=== PATIENT | male | born 1955 | race Caucasian/White ===

== ENCOUNTER 2018-04-03 16:12 | Emergency (ER) | payer OTHER ==
--- NOTE | 2018-04-03 16:48 | ER ---
Nurse's Notes [facility] Name: Gonzalo Aldridge Age: 62 yrs Sex: Male : 1955 Arrival Date: 04/03/2018 Time: 16:14 Bed 10 Private MD: Diagnosis: Low back pain Presentation: 04/03 16:27 Presenting complaint: Patient states: "I have chronic back and neck pain and I have hb been out of my Tramadol for 2 days but I can't get in to see Dr. Singh until ." Reports pain 05/07. Transition of care: patient was not received from another setting of care. Onset of symptoms was April 03, 2018. Risk Assessment: Do you want to hurt yourself or someone else? Patient reports no desire to harm self or others. Care prior to arrival: None. 16:27 Method Of Arrival: Ambulatory hb 16:27 Acuity: SHARONDA 4 hb 16:30 Initial Sepsis Screen: Does the patient meet any 2 criteria? No. Patient's initial hb sepsis screen is negative. Does the patient have a suspected source of infection? No. Patient's initial sepsis screen is negative. Triage Assessment: 16:28 General: Appears in no apparent distress. Behavior is calm, cooperative. Pain: Pain hb currently is 9 out of 10 on a pain scale. Neuro: Level of Consciousness is awake, alert, obeys commands, Oriented to person, place, time, situation. Cardiovascular: Capillary refill < 3 seconds Patient's skin is warm and dry. Respiratory: Airway is patent Trachea midline Respiratory effort is even, unlabored, Respiratory pattern is regular, symmetrical. Musculoskeletal: Capillary refill < 3 seconds, Reports pain in neck and back. Historical: - Allergies: 16:28 No Known Allergies; hb - Immunization history:: Adult Immunizations up to date. - Social history:: Smoking status: Patient/guardian denies using tobacco. - Ebola Screening: : No symptoms or risks identified at this time. Screenin:30 Abuse screen: Denies threats or abuse. Denies injuries from another. Nutritional hb screening: No deficits noted. Tuberculosis screening: No symptoms or risk factors identified. Fall Risk None identified. Assessment: 16:30 General: see triage assessment. hb Vital Signs: 16:28 BP 152 / 103; Pulse 80; Resp 18; Temp 98; Pulse Ox 100% on R/A; Pain 9/10; hb ED Course: 16:14 Patient arrived in ED. mr 16:28 Triage completed. hb 16:28 Arm band placed on left wrist. hb 16:30 Patient has correct armband on for positive identification. Call light in reach. hb 16:34 Wilmer Albright PA is PHCP. [facility] 16:34 Jose Newton MD is Attending Physician. [facility] 16:52 Manda Tomlinson, RN is Primary Nurse. hb 16:54 No provider procedures requiring assistance completed. Patient did not have IV access hb during this emergency room visit. Administered Medications: No medications were administered Outcome: 16:47 Discharge ordered by MD. [facility] 16:54 Discharged to home ambulatory. hb 16:54 Condition: stable 16:54 Discharge instructions given to patient, Instructed on discharge instructions, follow up and referral plans. medication usage, Demonstrated understanding of instructions, follow-up care, medications, Prescriptions given X 1. 16:55 Patient left the ED. hb Signatures: Wilmer Albright PA PA jmm Rivera, Maria Manda Tomlinson, RN RN hb
--- NOTE | 2018-04-03 16:48 | EDPHYS ---
Physician Documentation [facility] Name: Gonzalo Aldridge Age: 62 yrs Sex: Male : 1955 Arrival Date: 04/03/2018 Time: 16:14 Bed 10 Private MD: ED Physician Jose Newton HPI: 04/03 16:46 This 62 yrs old Male presents to ER via Ambulatory with complaints of Back jmm Pain. 16:46 The patient presents with pain that is chronic, with no known mechanism of injury. The jmm symptoms are located in the low back. Associated signs and symptoms: The patient has no apparent associated signs or symptoms. This is a 62 year old male with a history of chronic back and neck pain that presents to the ED with complaints of neck and back pain. Patient states that he ran out of tramadol 2 days ago and is scheduled to see his spray i painter in 2 days. Patient states symptoms are chronic. . Historical: - Allergies: 16:28 No Known Allergies; hb - Immunization history:: Adult Immunizations up to date. - Social history:: Smoking status: Patient/guardian denies using tobacco. - Ebola Screening: : No symptoms or risks identified at this time. ROS: 16:46 Constitutional: Negative for fever, chills, and weight loss, Cardiovascular: Negative jmm for chest pain, palpitations, and edema, Respiratory: Negative for shortness of breath, cough, wheezing, and pleuritic chest pain, Abdomen/GI: Negative for abdominal pain, nausea, vomiting, diarrhea, and constipation. 16:46 : Negative for injury, bleeding, discharge, and swelling, MS/Extremity: Negative for injury and deformity, Skin: Negative for injury, rash, and discoloration, Neuro: Negative for headache, weakness, numbness, tingling, and seizure. 16:46 Neck: Positive for pain with movement, pain at rest. 16:46 Back: Positive for pain at rest. 16:46 All other systems are negative. Exam: 16:46 Constitutional: This is a well developed, well nourished patient who is awake, alert, jmm and in no acute distress. Head/Face: atraumatic. Chest/axilla: Normal chest wall appearance and motion. Cardiovascular: Regular rate and rhythm. No edema appreciated Respiratory: Normal respirations, no respiratory distress appreciated Skin: General appearance color normal MS/ Extremity: Moves all extremities, no obvious deformities appreciated, no edema noted to the lower extremities Neuro: Awake and alert, normal gait 16:46 Neuro: Gait: is steady. Vital Signs: 16:28 BP 152 / 103; Pulse 80; Resp 18; Temp 98; Pulse Ox 100% on R/A; Pain 9/10; hb MDM: 16:46 Patient medically screened. [facility] 16:47 Data reviewed: vital signs, nurses notes. Counseling: I had a detailed discussion with wale the patient and/or guardian regarding: the historical points, exam findings, and any diagnostic results supporting the discharge/admit diagnosis, the need for outpatient follow up, to return to the emergency department if symptoms worsen or persist or if there are any questions or concerns that arise at home. Administered Medications: No medications were administered Disposition: 19:07 Co-signature as Attending Physician, Jose Newton MD. rn Disposition: 04/03/18 16:47 Discharged to Home. Impression: Low back pain. - Condition is Stable. - Discharge Instructions: Back Pain, Adult. - Prescriptions for Tramadol 50 mg Oral Tablet - take 1 tablet by ORAL route every 8 hours as needed; 6 tablet. - Medication Reconciliation Form, Thank You Letter, Antibiotic Education, Prescription Opioid Use form. - Follow up: Private Physician; When: 2 - 3 days; Reason: Continuance of care. Signatures: Wilmer Albright PA PA [facility] Jose Newton MD MD rn Baxter, Heather, RN RN hb Corrections: (The following items were deleted from the chart) 16:55 16:47 04/03/2018 16:47 Discharged to Home. Impression: Low back pain. Condition is hb Stable. Forms are Medication Reconciliation Form, Thank You Letter, Antibiotic Education, Prescription Opioid Use. Follow up: Private Physician; When: 2 - 3 days; Reason: Continuance of care. [facility]
== END 2018-04-03 16:55 | disposition home or self-care (01) ==
LOC: ER 16:12
DX: M54.5 Low back pain (principal)
CPT/HCPCS: 99282

== ENCOUNTER 2021-11-26 14:20 | Emergency (ER) | payer OTHER ==
--- OUTSIDE RECORDS SUMMARY | 2021-11-26 15:55 | XMS REPORT | Continuity of Care Document ---
:1955 Author Organization [facility] t Address [address] [place] [address] Care Team Providers Name Role Phone Ayan Desouza Primary Care Physician Karlene MCCARTHY Attending Clinician Unavailable BEST DEL TORO Attending Clinician Unavailable Nurse, Pob Immunization Attending Clinician Unavailable Best Del Toro DO Attending Clinician Karl TIMMONS Attending Clinician Unavailable Karlene MCCARTHY Admitting Clinician Unavailable Payers Payer Name Policy Type Policy Number Effective Date Expiration Date S mick [facility] [id number] 2018 00:00:00 PLUS Problems Condition Condition Condition Status Onset Resolution Last Treating Co mments Source Name Details Category Date Date Treatment Clinician Date Morbid Morbid Disease Active Univers obesity obesity 4-14 [place]y of [place] mass index 00 [place] dical of of [place] 40.0-49.9 40.0-49.9 Allergies, Adverse Reactions, Alerts Allergy Allergy Status Severity Reaction(s) Onset Inactive Treating Comm ents Source Name Type Date Date Clinician NO KNOWN Drug Active Univers ALLERGIE Class ity of S [facility] Social History Social Habit Start Date Stop Date Quantity Comments Source Tobacco use and 2020-12-22 2020-12-22 Never used Universit y of exposure 00:00:00 00:00:00 [facility] Tobacco Comment 2020-12-22 2020-12-22 quit 2010: 1ppd Univ ersity of 00:00:00 00:00:00 X 15 yrs [facility] Sex Assigned At [birth year] Universit y of 00:00:00 00:00:00 [facility] Smoking Status Start Date Stop Date Source Former smoker 2020-12-22 00:00:00 2020-12-22 00:00:00 [facility] Medications Ordered Filled Start Stop Current Ordering Indication Dosage Frequency Signature Comments Components Source Medication Medication Date Date Medication? Clinician (SIG) Name Name gabapentin Yes TAKE 3 Unive rs 300 mg 3-25 CAPSULES ity of capsule 00:00: BY MOUTH 00 EVERY Medical NIGHT AT Branch BEDTIME traMADoL 50 Yes 50mg Take 50 mg Univers mg tablet 3-25 by mouth 3 ity of 00:00: (three) [place] 00 times Medical daily. Branch doxazosin 4 Yes 4mg Take 4 mg U nivers mg tablet 2-22 by mouth ity of 00:00: every [place] morning. Medical Branch atorvastati Yes 40mg Take 40 mg Univers n 40 mg 1-22 by mouth ity of tablet 00:00: every [place] morning. Medical Branch lisinopriL Yes 20mg Take 20 mg U nivers 20 mg 1-22 by mouth ity of tablet 00:00: every [place] morning. [facility] Immunizations Ordered Filled Immunization Date Status Comments Sour e Immunization Name Name SARS-COV-2 COVID-19 2021-08-02 Completed Unive rsity of MODERNA BOOSTER 00:00:00 [facility] VACCINE Branch SARS-COV-2 COVID-19 2020-12-24 Completed Unive rsity of MODERNA VACCINE 00:00:00 [facility] SARS-COV-2 COVID-19 2020-11-25 Completed Unive rsity of MODERNA VACCINE 00:00:00 [facility] Procedures Procedure Date / Time Performed Performing Clinician Luisa e SARS-COV-2 COVID-19 2021-08-02 16:48:54 Doctor Unassigned, No Un iversity of [place] VACCINE Name [facility] BOOSTER,0.25ML,IM (MODERNA) Encounters Start End Encounter Admission Attending Care Care Encounter Source Date/Time Date/Time Type Type Clinicians Facility Department ID 2021-06-27 Outpatient Jensen MCCARTHY [facility] OPH [id number] Univers 10:42:08 NOEL brooks [facility] 2021-08-02 2021-08-02 Outpatient [facility] [id number] Univers 11:00:00 11:00:00 [id number] [facility] 2021-08-02 2021-08-02 Outpatient R RASHARD [facility] [id number] Univers 11:00:00 11:00:00 OZIEL bebeto [facility] 2021-08-02 2021-08-02 Imm/Inj Nurse, Adc Pob Immunization [facility] [id number] Univers 10:22:08 10:22:19 Visit RashardOziel P[place] [id number] [facility] [id number] [place] PROFESS[place] [id number] N[place] dical [address] 2020-12-24 2020-12-24 Outpatient Jensen DEL TORO [facility] [id number] Univers 14:10:00 [facility]:10:[facility] 2020-12-23 2020-12-23 Outpatient Jensen TIMMONS [facility] [id number] Univers 12:50:00 12:50:00 ANUM [facility] 2020-12-22 2020-12-22 Outpatient R [facility] [id number] Univers 11:30:00 11:30:00 [id number] [facility] 2020-12-22 2020-12-22 Outpatient Jensen MCCARTHY [facility] [id number] Univers 11:30:00 11:30:00 NOEL [facility] 2020-12-08 2020-12-08 Outpatient Jensen MCCARTHY [facility] [id number] Univers 09:45:00 09:45:00 NOEL [facility] 2020-11-30 2020-11-30 [facility] [id number] Univers 11:00:00 11:00:00 NOEL [facility] Results This patient has no known results.
--- NOTE | 2021-11-26 16:46 | EDPHYS ---
Physician Documentation [facility] Name: Gonzalo Aldridge Age: 66 yrs Sex: Male : 1955 Arrival Date: 11/26/2021 Time: 14:25 Bed 10 Private MD: Chaparrita Desouza C ED Physician Jose Newton HPI: 11/26 16:05 This 66 yrs old Male presents to ER via Wheelchair with complaints of Injury to Left cp Lower Leg and Left Foot. 16:05 The patient presents with an injury. The complaints affect the left rascon and dorsum of cp left foot. 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 Patient reports mild pain to left hip with history of left replacement but declines xrays at this time. Requests xrays of left foot and left lower leg. Historical: - Allergies: 15:01 No Known Allergies; ab2 - PMHx: 15:01 None; ab2 - PSHx: 15:01 Hip; ab2 - Immunization history:: Adult Immunizations up to date. - Social history:: Smoking status: Patient denies any tobacco usage or history of. ROS: 16:15 Constitutional: Negative for body aches, chills, fever, poor PO intake. cp 16:15 Respiratory: Negative for cough, shortness of breath, wheezing. 16:15 Abdomen/GI: Negative for abdominal pain, nausea, vomiting, and diarrhea. 16:15 MS/extremity: Positive for pain, swelling, tenderness, of the left foot and left rascon. 16:15 Skin: Negative for rash. 16:15 Neuro: Negative for altered mental status, headache, weakness. cp 16:15 All other systems are negative. cp Exam: 16:20 Constitutional: The patient appears in no acute distress, alert, awake, non-toxic, well cp developed, well nourished. 16:20 Head/Face: Normocephalic, atraumatic. cp 16:20 Neck: ROM/movement: is normal, is supple, without pain, no range of motions limitations. 16:20 Chest/axilla: Inspection: normal. 16:20 Cardiovascular: Rate: normal. 16:20 Respiratory: the patient does not display signs of respiratory distress, Respirations: normal. 16:20 Back: pain, is absent, ROM is normal. 16:20 Musculoskeletal/extremity: Extremities: grossly normal except: noted in the left rascon: ecchymosis, swelling, tenderness, noted in the left foot: tenderness, no evidence of decreased ROM, deformity, Perfusion: the extremity is normally perfused throughout, Sensation intact. Vital Signs: 15:01 BP 127 / 72; Pulse 65; Resp 17; Temp 97.9(TE); Pulse Ox 100% ; Weight 81.65 kg; Height ab2 5 ft. 10 in. (177.80 cm); Pain 10; 15:01 Body Mass Index 25.83 (81.65 kg, 177.80 cm) ab2 MDM: 15:46 Patient medically screened. cp 16:00 Differential diagnosis: dislocation, closed fracture, contusion. cp 16:45 Data reviewed: vital signs, nurses notes, radiologic studies, plain films. cp 16:45 Test interpretation: by ED physician or midlevel provider: plain radiologic studies. cp Counseling: I had a detailed discussion with the patient and/or guardian regarding: the historical points, exam findings, and any diagnostic results supporting the discharge/admit diagnosis, radiology results, to return to the emergency department if symptoms worsen or persist or if there are any questions or concerns that arise at home. 11/26 15:17 Order name: XRAY Ankle LEFT 3 view ab2 11/26 15:17 Order name: XRAY Foot LEFT 3 View ab2 11/26 15:17 Order name: XRAY Tib Fib LEFT ab2 11/26 16:45 Order name: Jeffery Wrap; Complete Time: 16:57 cp 11/26 16:45 Order name: Crutches; Complete Time: 16:56 cp Administered Medications: 16:57 Drug: Hydrocodone-Acetaminophen (7.5 mg-325 mg) 1 tabs Route: PO; jb4 17:23 Follow up: Response: Medication administered at discharge. jb4 16:57 Drug: Ibuprofen 800 mg Route: PO; jb4 17:23 Follow up: Response: Medication administered at discharge. jb4 Disposition: 11/27 08:58 Co-signature as Attending Physician, Jose Newton MD. rn Disposition Summary: 11/26/21 16:46 Discharge Ordered Location: Home cp Problem: new cp Symptoms: have improved cp Condition: Stable cp Diagnosis - Pain in left lower leg cp - Pain in left ankle and joints of left foot cp Followup: cp - With: Private Physician - When: 2 - 3 days - Reason: Worsening of condition Discharge Instructions: - Discharge Summary Sheet cp - Elastic Bandage and RICE Therapy cp - Musculoskeletal Pain cp Forms: - Medication Reconciliation Form cp - Thank You Letter cp - Antibiotic Education cp - Prescription Opioid Use cp Prescriptions: - Naprosyn 500 mg Oral Tablet - take 1 tablet by ORAL route 2 times per day take with food; 20 tablet; Refills: cp 0, Product Selection Permitted Signatures: Dispatcher [employer] EDMS Jose Newton MD MD rn Macario Whalen PA PA Larry Fernandez, RN RN jb4 Earl Baxter2 Corrections: (The following items were deleted from the chart) 11/26 16:08 15:17 Femur Left+RAD.RAD.BRZ ordered. EDMS EDMS 16:08 15:17 Hip Left 2 View+RAD.RAD.BRZ ordered. EDMS EDMS
--- NOTE | 2021-11-26 16:46 | ER ---
Nurse's Notes [facility] Name: Gonzalo Aldridge Age: 66 yrs Sex: Male : 1955 Arrival Date: 11/26/2021 Time: 14:25 Bed 10 Private MD: Chaparrita Desouza C Diagnosis: Pain in left lower leg;Pain in left ankle and joints of left foot Presentation: 11/26 15:01 Chief complaint: Patient states: "I was helping an older couple load something at [address] and another lady ran my foot over and i feel and landed on my hip." Pt c/o left hip, left leg and foot pain. Pt denies hitting his head or LOC. Coronavirus screen: Vaccine status: Patient reports receiving the 2nd dose of the covid vaccine. Client denies travel out of the [place] in the last 14 days. At this time, the client does not indicate any symptoms associated with coronavirus-19. Ebola Screen: Patient negative for fever greater than or equal to 101.5 degrees Fahrenheit, and additional compatible Ebola Virus Disease symptoms Patient denies exposure to infectious person. Patient denies travel to an Ebola-affected area in the 21 days before illness onset. No symptoms or risks identified at this time. Initial Sepsis Screen: Does the patient meet any 2 criteria? No. Patient's initial sepsis screen is negative. Does the patient have a suspected source of infection? No. Patient's initial sepsis screen is negative. Risk Assessment: Do you want to hurt yourself or someone else? Patient reports no desire to harm self or others. Onset of symptoms is unknown. 15:01 Method Of Arrival: Wheelchair ab2 15:01 Acuity: SHARONDA 4 ab2 Triage Assessment: 15:03 General: Appears in no apparent distress. comfortable, Behavior is calm, cooperative, ab2 appropriate for age. Pain: Complains of pain in left leg Pain does not radiate. Pain currently is 10 out of 10 on a pain scale. Neuro: Level of Consciousness is awake, alert, obeys commands, Oriented to person, place, time, situation, Appropriate for age Insurance Salesman are equal bilaterally Moves all extremities. Speech is normal, Facial symmetry appears normal. Cardiovascular: No deficits noted. Respiratory: No deficits noted. Airway is patent Respiratory effort is even, unlabored, Respiratory pattern is regular, symmetrical. Musculoskeletal: Reports pain in left leg. Historical: - Allergies: 15:01 No Known Allergies; ab2 - PMHx: 15:01 None; ab2 - PSHx: 15:01 Hip; ab2 - Immunization history:: Adult Immunizations up to date. - Social history:: Smoking status: Patient denies any tobacco usage or history of. Screenin:04 Abuse screen: Denies threats or abuse. Nutritional screening: No deficits noted. jb4 Tuberculosis screening: No symptoms or risk factors identified. Fall Risk None identified. Assessment: 16:03 General: Appears in no apparent distress. uncomfortable, Behavior is calm, cooperative, jb4 appropriate for age. Pain: Complains of pain in left rascon and anterior aspect of left ankle Pain does not radiate. Pain currently is 9 out of 10 on a pain scale. Neuro: Level of Consciousness is awake, alert, obeys commands, Oriented to person, place, time, situation. Cardiovascular: Patient's skin is warm and dry. Respiratory: Airway is patent Respiratory effort is even, unlabored, Respiratory pattern is regular, symmetrical. GI: No signs and/or symptoms were reported involving the gastrointestinal system. : No signs and/or symptoms were reported regarding the genitourinary system. EENT: No signs and/or symptoms were reported regarding the EENT system. Derm: Skin is intact, Skin is pink, warm \\T\\ dry. Musculoskeletal: Circulation, motion, and sensation intact. Range of motion: intact in all extremities, Swelling present in left leg. 17:04 Reassessment: Patient appears in no apparent distress at this time. Patient and/or jb4 family updated on plan of care and expected duration. Pain level reassessed. Patient is alert, oriented x 3, equal unlabored respirations, skin warm/dry/pink. Pt verbalized understanding of d/c and follow up instructions. Denies questions or concerns. Ambulated to vehicle with crutches with family member. Vital Signs: 15:01 BP 127 / 72; Pulse 65; Resp 17; Temp 97.9(TE); Pulse Ox 100% ; Weight 81.65 kg; Height ab2 5 ft. 10 in. (177.80 cm); Pain 10/10; 15:01 Body Mass Index 25.83 (81.65 kg, 177.80 cm) ab2 ED Course: 14:25 Patient arrived in ED. am2 14:26 Chaparrita Desouza FNP is Private Physician. am2 15:03 Triage completed. ab2 15:04 Arm band placed on left wrist. ab2 15:40 Macario Whalen PA is PHCP. cp 15:40 Macario Johnson MD is Attending Physician. cp 15:41 Jose Newton MD is Attending Physician. cp 16:03 Larry Martinez, RN is Primary Nurse. jb4 16:04 Patient has correct armband on for positive identification. Bed in low position. Call jb4 light in reach. Side rails up X 1. 16:27 XRAY Ankle LEFT 3 view In Process Unspecified. EDMS 16:28 XRAY Foot LEFT 3 View In Process Unspecified. EDMS 16:28 XRAY Tib Fib LEFT In Process Unspecified. EDMS 17:04 No provider procedures requiring assistance completed. Patient did not have IV access jb4 during this emergency room visit. Administered Medications: 16:57 Drug: Hydrocodone-Acetaminophen (7.5 mg-325 mg) 1 tabs Route: PO; jb4 17:23 Follow up: Response: Medication administered at discharge. jb4 16:57 Drug: Ibuprofen 800 mg Route: PO; jb4 17:23 Follow up: Response: Medication administered at discharge. jb4 Outcome: 16:46 Discharge ordered by MD. cp 17:04 Discharged to home ambulatory, with crutches, with family. jb4 17:04 Condition: stable 17:04 Discharge instructions given to patient, Instructed on discharge instructions, follow up and referral plans. medication usage, Demonstrated understanding of instructions, follow-up care, medications, Prescriptions given X 1. 17:06 Patient left the ED. jb4 Signatures: Dispatcher [employer] EDMS Macario Whalen PA PA cp Larry Martinez, RN RN jb4 Aura Gunderson am2 Earl Baxter ab2 Corrections: (The following items were deleted from the chart) 15:04 15:01 Chief complaint: Patient states: "I was helping an older couple load something at [address] another lady ran my foot over and i feel and landed on my hip." Pt c/o left hip, left leg and foot pain. ab2
[2021-11-26] MEDS ORDERED: HYDROCODONE/APAP 7.5/325 MG TAB ONE (16:53)
[2021-11-26] MEDS ORDERED: IBUPROFEN 400 MG TAB ONE (16:54)
--- NOTE | 2021-11-26 20:05 | RAD REPORT ---
EXAM DESCRIPTION: RAD - Tib Fib Left - 11/26/2021 4:26 pm CLINICAL HISTORY: Left leg trauma, leg pain COMPARISON: None. FINDINGS: No fracture is identified. There is no dislocation or periosteal reaction noted. No acute bone or joint finding identified. Contusion and edema changes are seen in the anterior and lateral aspects of the distal left lower leg . IMPRESSION: Left leg contusion and/ or edema with no acute bone finding.
--- NOTE | 2021-11-26 20:06 | RAD REPORT ---
EXAM DESCRIPTION: RAD - Ankle Left 3 View - 11/26/2021 4:25 pm CLINICAL HISTORY: PAIN COMPARISON: No comparisonsNo comparisons FINDINGS: No fracture, dislocation or periosteal reaction. No joint effusion seen. No joint space na rrowing. Contusion or edema changes are present in the distal left leg and ankle region. No foreign b calvin. IMPRESSION: Left leg and ankle contusion and/ or edema with no acute bone or joint finding.
--- NOTE | 2021-11-26 20:07 | RAD REPORT ---
EXAM DESCRIPTION: RAD - Foot Left 3 View - 11/26/2021 4:25 pm CLINICAL HISTORY: PAIN, trauma COMPARISON: No comparisons FINDINGS: No fracture, dislocation or periosteal reaction. No acute or destructive bony process. No air or foreign body in the soft tissues. IMPRESSION: Negative left foot examination.
== END 2021-11-26 17:06 | disposition home or self-care (01) ==
LOC: ER 14:20
DX: M25.572 Pain in left ankle and joints of left foot (principal)
CPT/HCPCS: 99283